=== PATIENT | male | born 1950 | race Asian ===

== ENCOUNTER 2020-07-30 06:27 | Day surgery (SDC) | payer OTHER, SELFPAY ==
[~2020-07-30] VITALS: Ht 157.5 cm; Wt 65.8 kg
[2020-07-30] MEDS ORDERED: fentaNYL citrate 0.05 MG/ML VIAL ONE (07:21)
[2020-07-30] MEDS ORDERED: diphenhydrAMINE 50 MG/ML VIAL ONE (07:21)
[2020-07-30] MEDS ORDERED: MIDAZOLAM 5 MG/5 ML VIAL ONE (07:22)
[2020-07-30] MEDS ORDERED: fentaNYL citrate 0.05 MG/ML VIAL IVP ONE (08:35)
[2020-07-30] MEDS ORDERED: MIDAZOLAM 2 MG/2 ML VIAL IVP ONE (08:35)
== END 2020-07-30 09:25 | disposition home or self-care (01) ==
LOC: MOR 06:27 → MMU 06:28 → MOR 09:25
PROVIDERS: ATTEND Internal Medicine Gastroenterology
DX: K62.5 Hemorrhage of anus and rectum (principal); D12.3 Benign neoplasm of transverse colon; K31.89 Other diseases of stomach and duodenum; K59.00 Constipation, unspecified; K21.9 Gastro-esophageal reflux disease without esophagitis; Z90.89 Acquired absence of other organs; Z98.890 Other specified postprocedural states; Z79.82 Long term (current) use of aspirin; Z79.899 Other long term (current) drug therapy; Z20.828 Contact with and (suspected) exposure to other viral communicable diseases; Z80.0 Family history of malignant neoplasm of digestive organs
CPT/HCPCS: 43239; 45380; 45385; 88305; 88312; 88313; J2250; J3010; U0003; J1200

== ENCOUNTER 2020-08-07 05:27 | Day surgery (SDC) | payer OTHER, SELFPAY ==
[~2020-08-07] VITALS: Ht 157.5 cm; Wt 65.8 kg
[2020-08-07] MEDS ORDERED: MIDAZOLAM 5 MG/5 ML VIAL ONE (07:07)
[2020-08-07] MEDS ORDERED: LIDOCAINE 2% 100 MG/5 ML UJET TP ONE (07:07)
[2020-08-07] MEDS ORDERED: diphenhydrAMINE 50 MG/ML VIAL ONE (07:07)
[2020-08-07] MEDS ORDERED: fentaNYL citrate 0.05 MG/ML VIAL ONE (07:07)
[2020-08-07] MEDS ORDERED: SIMETHICONE 40 MG/0.6 ML ONE (07:20)
[2020-08-07] MEDS ORDERED: fentaNYL citrate 0.05 MG/ML VIAL IVP ONE (13:30)
[2020-08-07] MEDS ORDERED: MIDAZOLAM 2 MG/2 ML VIAL IVP ONE (13:30)
== END 2020-08-07 09:10 | disposition home or self-care (01) ==
LOC: MDS 05:27 → MMU 05:28 → MDS 09:10
PROVIDERS: ATTEND Internal Medicine Gastroenterology
DX: K62.5 Hemorrhage of anus and rectum (principal); K63.5 Polyp of colon; K59.00 Constipation, unspecified; K21.9 Gastro-esophageal reflux disease without esophagitis; I10 Essential (primary) hypertension; E78.5 Hyperlipidemia, unspecified; Z90.89 Acquired absence of other organs; Z79.84 Long term (current) use of oral hypoglycemic drugs; Z79.899 Other long term (current) drug therapy; Z87.891 Personal history of nicotine dependence; Z20.828 Contact with and (suspected) exposure to other viral communicable diseases; Z98.890 Other specified postprocedural states
CPT/HCPCS: 45381; 45385; 87426; J2250; J3010; U0003; 88305; J1200

== ENCOUNTER 2021-04-01 05:21 | Day surgery (SDC) | payer OTHER ==
[~2021-04-01] VITALS: Ht 157.5 cm; Wt 61.2 kg
[2021-04-01] MEDS ORDERED: diphenhydrAMINE 50 MG/ML VIAL ONE (07:48)
[2021-04-01] MEDS ORDERED: MIDAZOLAM 5 MG/5 ML VIAL ONE (07:49)
[2021-04-01] MEDS ORDERED: fentaNYL citrate 0.05 MG/ML VIAL ONE (07:49)
[2021-04-01] MEDS ORDERED: LIDOCAINE 2% 100 MG/5 ML UJET TP ONE (07:49)
[2021-04-01] MEDS ORDERED: fentaNYL citrate 0.05 MG/ML VIAL IVP ONE (10:30)
[2021-04-01] MEDS ORDERED: MIDAZOLAM 5 MG/5 ML VIAL IV ONE (10:30)
== END 2021-04-01 09:45 | disposition home or self-care (01) ==
LOC: MDS 05:21 → MMU 06:03 → MDS 09:45
PROVIDERS: ATTEND Internal Medicine Gastroenterology
DX: K62.5 Hemorrhage of anus and rectum (principal); D12.2 Benign neoplasm of ascending colon; D12.4 Benign neoplasm of descending colon; K59.00 Constipation, unspecified; K21.9 Gastro-esophageal reflux disease without esophagitis; I10 Essential (primary) hypertension; E78.5 Hyperlipidemia, unspecified; E11.9 Type 2 diabetes mellitus without complications; Z86.010 Personal history of colon polyps; Z79.82 Long term (current) use of aspirin; Z79.899 Other long term (current) drug therapy
CPT/HCPCS: 45385; 88305; J2250; J3010; J1200

== ENCOUNTER 2022-04-07 08:11 | Day surgery (SDC) | payer OTHER ==
[~2022-04-07] VITALS: Ht 157.5 cm; Wt 63.5 kg
[2022-04-07] MEDS ORDERED: LIDOCAINE 2% 100 MG/5 ML UJET TP ONE (09:56)
[2022-04-07] MEDS ORDERED: MIDAZOLAM 5 MG/5 ML VIAL ONE (09:56)
[2022-04-07] MEDS ORDERED: fentaNYL citrate 0.05 MG/ML VIAL ONE (09:56)
[2022-04-07] MEDS ORDERED: diphenhydrAMINE 50 MG/ML VIAL ONE (09:56)
[2022-04-07] MEDS ORDERED: MIDAZOLAM 2 MG/2 ML VIAL IVP ONE (13:20)
[2022-04-07] MEDS ORDERED: fentaNYL citrate 0.05 MG/ML VIAL IVP ONE (13:20)
== END 2022-04-07 11:50 | disposition home or self-care (01) ==
LOC: MDS 08:11 → MMU 08:11 → MDS 11:50
PROVIDERS: ATTEND Internal Medicine Gastroenterology
DX: Z09 Encounter for follow-up examination after completed treatment for conditions other than malignant neoplasm (principal); Z08 Encounter for follow-up examination after completed treatment for malignant neoplasm; K63.5 Polyp of colon; Z79.899 Other long term (current) drug therapy; Z85.038 Personal history of other malignant neoplasm of large intestine; Z20.822 Contact with and (suspected) exposure to COVID-19
CPT/HCPCS: 45380; 45385; 87426; 88305; J2250; J3010; J1200